=== PATIENT | female | born 1970 | race Caucasian/White ===

== ENCOUNTER 2017-11-10 16:04 | Day surgery (SDC) | payer OTHER ==
[2017-11-10] MEDS ORDERED: DEXAMETHASONE 4 MG/ML 1 ML INJ (18:14)
[2017-11-10] MEDS: BUPIVACAINE 0.5% (SDV) 30 ML INJ (18:34)
[2017-11-10] MEDS: POLYMYXIN/BACITRACIN 1L IRRIG (18:34)
[2017-11-10] MEDS: LIDOCAINE 1%/EPI 30 ML INJ (18:34)
[2017-11-10] MEDS ORDERED: PROPOFOL 20 ML ×2 (18:40→19:08)
[2017-11-10] MEDS ORDERED: ONDANSETRON 4 MG INJ (18:41)
[2017-11-10] MEDS ORDERED: METOCLOPRAMIDE 10 MG INJ (18:41)
[2017-11-10] MEDS ORDERED: MIDAZOLAM 1 MG/ML 2 ML INJ (18:42)
[2017-11-10] MEDS ORDERED: CEFAZOLIN 1 GM INJ (18:44)
[2017-11-10] MEDS ORDERED: FENTAnyl 50 MCG/ML VIAL (18:44)
[2017-11-10] MEDS ORDERED: ROPIVACAINE 0.5 % 30 ML VIAL (18:46)
[2017-11-10] MEDS ORDERED: HYDROmorphONE (0.2 MG/ML) 10ML SYG IV (19:00)
[2017-11-10] MEDS ORDERED: DIPHENHYDRAMINE 50 MG INJ IV (19:00)
[2017-11-10] MEDS ORDERED: OXYCODONE/ACETAMINOPHEN (5/325) TAB PO ×2 (19:00)
[2017-11-10] MEDS ORDERED: MEPERIDINE 25 MG INJ IV (19:00)
[2017-11-10] MEDS ORDERED: KETOROLAC 30 MG INJ (19:04)
[2017-11-10] MEDS: HYDROmorphONE (0.2 MG/ML) 10ML SYG IV ×2 (20:37→20:52)
[2017-11-10] MEDS: ONDANSETRON 4 MG INJ IV ×2 (20:39→21:42)
[2017-11-10] MEDS ORDERED: HYDROCODONE/APAP (5/325) TAB PO (21:00)
== END 2017-11-10 21:55 | disposition home or self-care (01) ==
LOC: SDS 16:04
DX: M20.42 Other hammer toe(s) (acquired), left foot (principal)
CPT/HCPCS: 28308; 73630-LT; 84703